=== PATIENT | female | born 1965 | race African-American/Black ===

== ENCOUNTER 2017-03-22 17:05 | Emergency (ER) | payer BC ==
[~2017-03-22] VITALS: Ht 177.8 cm; Wt 142.9 kg
--- NOTE | ~2017-03-22 | EKG ---
[place] [address] [facility] [place] [address] ELECTROCARDIOGRAM REPORT Name: SALO MARREOR Room #: DEP DARINEL Ding#: [id number] Admission: 03/22/17 Attend Phys: Discharge: 03/22/17 Date of : 67 Report #: [id number] THIS REPORT FOR: //name// [facility] ED Test Date: 2017-03-22 Test Time: 18:30:39 Pat Name: SALO MARRERO Department: Room: Gender: F Sat Act Instructor: Darcie VELA : 1965 Requested By: Kevin Ron Order Number: [id number] MD: Silvino Barcenas Measurements Intervals [place] Rate: 76 P: [place]: QRS: -40 QRSD: 125 T: 93 QT: 416 QTc: 468 Interpretive Statements Normal sinus rhythm Nonspecific IVCD with LAD Left ventricular hypertrophy Electronically Signed On 03-23-2017 22:27:17 CDT by Silvino Barcenas [email or web address] <ELECTRONICALLY SIGNED> By: Silvino Barcenas MD 03/23/17 2227 1830 1830 Silvino Barcenas MD /JO ANN
--- NOTE | ~2017-03-22 | EKG ---
[place] [address] [facility] [place] [address] ELECTROCARDIOGRAM REPORT Name: SALO MARRERO Room #: DEP DARINEL Ding#: [id number] Admission: 03/22/17 Attend Phys: Discharge: 03/22/17 Date of : 67 Report #: [id number] THIS REPORT FOR: //name// [facility] ED Test Date: 2017-03-22 Test Time: 18:17:38 Pat Name: SALO MARRERO Department: Room: Gender: F University Counselor: Darcie VELA : 1965 Requested By: Kevin Ron Order Number: [id number] MD: Silvino Barcenas Measurements Intervals [place] Rate: 83 P: 42 MD: 195 QRS: -39 QRSD: 121 T: 95 QT: 403 QTc: 474 Interpretive Statements Sinus rhythm Nonspecific IVCD with LAD Left ventricular hypertrophy Electronically Signed On 03-23-2017 22:26:30 CDT by Silvino Barcenas [email or web address] <ELECTRONICALLY SIGNED> By: Silvino Barcenas MD 03/23/17 2226 1817 181 MD URIEL Kay
[2017-03-22 18:05] LABS: HEMATOCRIT 38.3 % (37.0-47.0); HEMOGLOBIN 13.2 gm/dL (12.0-15.0); MANUAL DIFF YES; MCH 30.2 pg (26.0-34.0); MCHC 34.5 g/dL (28.0-37.0); MCV 87.7 fL (80.0-100.0); PLATELET COUNT 237 thou/uL (150-400); RBC 4.37 mil/uL (4.20-5.00); RDW 14.1 % (10.5-14.5)
[2017-03-22 18:19] LABS: ANION GAP 6 mmol/L (7-16); BUN 13 mg/dL (7-18); CHLORIDE 108 mmol/L (98-107); CO2 27 mmol/L (21-32); GLUCOSE 113 mg/dL (74-106); POTASSIUM 3.8 mmol/L (3.5-5.1); SODIUM 141 mmol/L (136-145)
[2017-03-22 18:27] LABS: TROPONIN-I < 0.04 ng/mL (<0.04-0.07)
[2017-03-22 18:29] LABS: TOTAL CELL COUNT 100
[2017-03-22 18:40] LABS: URINE BILIRUBIN NEGATIVE (Negative); URINE BLOOD 2+ (Negative); URINE GLUCOSE-RANDOM* NEGATIVE (Negative); URINE KETONES NEGATIVE (Negative); URINE LEUKOCYTES-REFLEX TRACE (Negative); URINE PROTEIN (DIPSTICK) TRACE (Negative); URINE SPECIFIC GRAVITY 1.015 (1.003-1.035)
[2017-03-22] MEDS ORDERED: ANTIVERT25 MG PO ×2 (18:44→18:56)
[2017-03-22 18:46] LABS: URINE COLOR YELLOW
[2017-03-22 18:48] LABS: CASTS None Seen /LPF (None Seen); SQUAMOUS 0-3 Few /LPF (0-3); URINE RBC 3-10 Few /HPF (0-2); URINE WBC-REFLEX 0-5 Rare /HPF (0-5)
[2017-03-22 18:49] LABS: CRYSTALS None Seen /LPF (None Seen)
[2017-03-22] MEDS ORDERED: MACROBID 100 M100 M1 PO (18:50)
[2017-03-22 18:58] VITALS: BP 136/93
== END 2017-03-22 18:58 | disposition home or self-care (01) ==
LOC: ER 17:05
PROVIDERS: Physician Assistant
DX: R42 Dizziness and giddiness (principal); L02.611 Cutaneous abscess of right foot; N39.0 Urinary tract infection, site not specified; I10 Essential (primary) hypertension; Z88.5 Allergy status to narcotic agent